=== PATIENT | female | born 1965 | race Caucasian/White ===

== ENCOUNTER 2020-09-25 17:06 | Inpatient (IN) | payer MEDICARE, OTHER ==
[~2020-09-25] VITALS: Ht 162.6 cm; Wt 63.6 kg
[2020-09-25 19:09] LABS: BASOPHIL 0.7 % (0-2); EOSINOPHIL 0.5 % (0-5); HCT 40.7 % (37.0-47.0); HGB 13.2 g/dl (12.5-16.0); LYMPHOCYTE 25.6 % (15-48); MCH 32.1 pg (25.0-31.0); MCHC 32.4 g/dL (32.0-36.0); MONOCYTE 7.3 % (0-12); MPV 10.7 fL (6.0-9.5); NEUTROPHIL 65.6 % (41-80); NRBC 0; PLT 143 K/uL (150-400); RBC 4.11 M/uL (4.20-5.40); RDW 11.8 % (11.5-14.0); WBC 5.9 K/uL (4.0-10.5)
[2020-09-25 19:24] LABS: INR 1.09 (0.9-1.2); PROTHROMBIN TIME 13.4 SECONDS (11.4-13.6)
[2020-09-25 19:25] LABS: PTT 28.8 SECONDS (22.2-34.7)
[2020-09-25 19:26] LABS: D-DIMER 0.46 ug/mLFEU (0.00-0.41)
[2020-09-25 19:41] LABS: BILIRUBIN NEGATIVE (NEGATIVE); BLOOD NEGATIVE Ery/uL (NEGATIVE); CLARITY CLEAR (CLEAR); COLOR YELLOW (YELLOW); GLUCOSE (U) NORMAL (NORMAL); LEUKOCYTES NEGATIVE Leu/uL (NEGATIVE); NITRITE NEGATIVE (NEGATIVE); PROTEIN NEGATIVE (NEGATIVE); UROBILINOGEN 0.2 mg/dL (0.2-1.0); pH 6.5 (5.0-9.0)
[2020-09-25 19:43] LABS: ALBUMIN 3.4 g/dL (3.4-5.0); BILIRUBIN - TOTAL 0.3 mg/dL (0.2-1.0); BUN/CREAT RATIO (CALC) 10.9 RATIO; C-REACTIVE PROTEIN 0.3 mg/dL (<=0.90); CREATININE 0.64 mg/dL (0.51-0.95); GLOBULIN (CALCULATION) 3.4 g/dL; POTASSIUM 3.9 mmol/L (3.5-5.1); TOTAL PROTEIN 6.8 g/dL (6.4-8.2)
[2020-09-26] MEDS ORDERED: AMBIEN CR12.5 MG PO (01:40)
[2020-09-26] MEDS ORDERED: CHANTIX1 EACH PO (01:41)
[2020-09-26] MEDS ORDERED: VENTOLIN HFA IN18 GM INH (01:41)
[2020-09-26 06:52] LABS: BASOPHIL 0.9 % (0-2); EOSINOPHIL 1.7 % (0-5); HCT 39.8 % (37.0-47.0); HGB 12.8 g/dl (12.5-16.0); LYMPHOCYTE 42.4 % (15-48); MCH 31.6 pg (25.0-31.0); MCHC 32.2 g/dL (32.0-36.0); MCV 98.3 fL (78.0-100.0); MONOCYTE 8.7 % (0-12); MPV 10.7 fL (6.0-9.5); NEUTROPHIL 46.1 % (41-80); NRBC 0; PLT 141 K/uL (150-400); RBC 4.05 M/uL (4.20-5.40); RDW 11.8 % (11.5-14.0); WBC 4.7 K/uL (4.0-10.5)
[2020-09-26 07:21] LABS: ALBUMIN 3.1 g/dL (3.4-5.0); BILIRUBIN - TOTAL 0.4 mg/dL (0.2-1.0); BUN/CREAT RATIO (CALC) 12.7 RATIO; CREATININE 0.63 mg/dL (0.51-0.95); GLOBULIN (CALCULATION) 3.3 g/dL; POTASSIUM 3.5 mmol/L (3.5-5.1); TOTAL PROTEIN 6.4 g/dL (6.4-8.2)
[2020-09-27] MEDS ORDERED: COREG 3.125M3.125 MG PO (10:41)
[2020-09-27] MEDS ORDERED: NITROQUIK SL0.4 MG SL (10:41)
--- NOTE | 2020-09-27 11:25 | NUR ---
09/27/20 Patient lives at home with her spouse and was independent in the home and community prior to admission. There are no discharge planning needs per Dr. Lemus. - Patient was provided with smoking cessation literature.
== END 2020-09-27 11:25 | disposition home or self-care (01) | DRG 281 ==
LOC: FER 17:06 → FMS 22:42
PROVIDERS: Emergency Medicine; Nurse Practitioner; ADMIT Internal Medicine
PROC: B24BZZZ Ultrasonography of Heart with Aorta (ICD-10-PCS; principal; 2020-09-25)
DX: I42.8 Other cardiomyopathies (principal); I21.A1 Myocardial infarction type 2; I50.22 Chronic systolic (congestive) heart failure; F17.210 Nicotine dependence, cigarettes, uncomplicated; Z20.828 Contact with and (suspected) exposure to other viral communicable diseases; J44.9 Chronic obstructive pulmonary disease, unspecified; Z90.49 Acquired absence of other specified parts of digestive tract; Z98.51 Tubal ligation status; Z88.1 Allergy status to other antibiotic agents; Z88.5 Allergy status to narcotic agent; Z98.890 Other specified postprocedural states; Z88.0 Allergy status to penicillin; Z88.8 Allergy status to other drugs, medicaments and biological substances; Z79.899 Other long term (current) drug therapy
CPT/HCPCS: 36415; 71045; 80053; 80061; 81003; 82728; 83735; 84145; 84484; 85025; 85379; 85610; 85730; 86140; 93005; G0378; J7040; U0002